=== PATIENT | female | born 1980 | race Caucasian/White ===

== ENCOUNTER 2018-10-11 02:14 | Inpatient (IN) | payer MEDICAID ==
[2018-10-11] MEDS ORDERED: OXYTOCIN 30 UNITS/LR 500 ML IV ×2 (03:00→06:00)
[2018-10-11] MEDS ORDERED: BUTORPHANOL 2 MG INJ IV (03:00)
[2018-10-11] MEDS ORDERED: CARBOPROST 250 MCG INJ IM ×2 (03:00→06:00)
[2018-10-11] MEDS ORDERED: MISOPROSTOL 200 MCG TAB PR ×2 (03:00→06:00)
[2018-10-11] MEDS ORDERED: METHYLERGONOVINE 0.2 MG INJ IM ×2 (03:00→06:00)
[2018-10-11] MEDS: LACTATED RINGER'S 1,000 ML IV ×3 (03:01→21:08)
[2018-10-11 03:21] LABS: ADD MAN DIFF? NO
[2018-10-11 03:33] LABS: BASOPHIL # 0.1 10^3/ul (0.0-0.1); BASOPHILS % 0.6 % (0.0-2.0); EOSINOPHILS # 0.1 10^3/ul (0.0-0.5); EOSINOPHILS % 1.2 % (0.0-7.0); HEMATOCRIT 41.4 % (37.0-47.0); HEMOGLOBIN 13.7 g/dl (12.0-16.0); LYMPHOCYTES # 1.8 10^3/ul (0.8-2.9); LYMPHOCYTES % 18.3 % (15.0-51.0); MEAN CORPUSCULAR HEMOGLOBIN 27.8 pg (29.0-33.0); MEAN CORPUSCULAR HGB CONC 33.1 g/dl (32.0-37.0); MEAN PLATELET VOLUME 11.2 fl (7.4-10.4); MONOCYTE # 0.8 10^3/ul (0.3-0.9); MONOCYTES % 8.4 % (0.0-11.0); NEUTROPHIL # 6.8 10^3/ul (1.6-7.5); NEUTROPHILS % 70.9 % (39.0-77.0); PLATELET COUNT 219 10^3/UL (140-415); RED BLOOD COUNT 4.93 10^6/ul (4.20-5.40); RED CELL DISTRIBUTION WIDTH 13.5 % (11.5-14.5)
[2018-10-11 03:33] LABS: WHITE BLOOD COUNT 9.7 10^3/ul (4.8-10.8)
[2018-10-11 03:45] LABS: INR 0.88; PT RATIO 0.9
[2018-10-11 03:46] LABS: PARTIAL THROMBOPLASTIN TIME 26.2 Sec (23.0-35.0)
[2018-10-11 04:26] LABS: HEPATITIS B SURFACE ANTIGEN NEGATIVE (NEGATIVE)
[2018-10-11] MEDS: OXYTOCIN 30 UNITS/LR 500 ML IV ×3 (05:43→05:47)
[2018-10-11] MEDS: LIDOCAINE 1% (MPF) 30 ML INJ INJ (05:44)
[2018-10-11] MEDS ORDERED: MAGNESIUM HYDROXIDE 30ML CUP PO (06:00)
[2018-10-11] MEDS ORDERED: ACETAMINOPHEN 325 MG TAB PO ×2 (06:00)
[2018-10-11] MEDS ORDERED: ONDANSETRON 4 MG INJ IV (06:00)
[2018-10-11 15:33] LABS: RAPID PLASMA REAGIN NONREACTIVE (NR)
[2018-10-11] MEDS: DIBUCAINE 1% 30 GM OINT TOP (19:20)
[2018-10-11] MEDS: WITCH HAZEL/GLYCERIN PAD PR (19:20)
[2018-10-11] MEDS: BENZOCAINE 20% 56 ML SPRAY TOP (19:21)
[2018-10-11] MEDS: LANOLIN HPA 1 PKT TOP (19:21)
[2018-10-11] MEDS: SENNA/DOCUSATE NA (8.6MG/50MG) TAB PO (21:00)
[2018-10-11] MEDS: LACTATED RINGER'S 1,000 ML IV* ×3 (21:08→21:47)
[2018-10-11] MEDS: IBUPROFEN 600 MG TAB PO (23:44)
[2018-10-12] MEDS: LACTATED RINGER'S 1,000 ML IV ×3 (02:49→18:49)
[2018-10-12] MEDS: LACTATED RINGER'S 1,000 ML IV* ×3 (05:47→21:47)
[2018-10-12] MEDS: IBUPROFEN 600 MG TAB PO (06:29)
[2018-10-12 08:51] LABS: ADD MAN DIFF? NO
[2018-10-12 08:56] LABS: WHITE BLOOD COUNT 10.4 10^3/ul (4.8-10.8)
[2018-10-12 08:56] LABS: BASOPHILS % 0.4 % (0.0-2.0); EOSINOPHILS # 0.2 10^3/ul (0.0-0.5); EOSINOPHILS % 1.8 % (0.0-7.0); HEMATOCRIT 34.1 % (37.0-47.0); HEMOGLOBIN 11.4 g/dl (12.0-16.0); LYMPHOCYTES % 19.2 % (15.0-51.0); MEAN CORPUSCULAR HEMOGLOBIN 28.2 pg (29.0-33.0); MEAN CORPUSCULAR HGB CONC 33.4 g/dl (32.0-37.0); MEAN CORPUSCULAR VOLUME 84.4 fl (82.0-101.0); MONOCYTE # 0.9 10^3/ul (0.3-0.9); MONOCYTES % 8.4 % (0.0-11.0); NEUTROPHIL # 7.2 10^3/ul (1.6-7.5); NEUTROPHILS % 69.1 % (39.0-77.0); PLATELET COUNT 182 10^3/UL (140-415); RED BLOOD COUNT 4.04 10^6/ul (4.20-5.40); RED CELL DISTRIBUTION WIDTH 14.1 % (11.5-14.5)
[2018-10-13] MEDS: SENNA/DOCUSATE NA (8.6MG/50MG) TAB PO (09:23)
[2018-10-13] MEDS: IBUPROFEN 600 MG TAB PO (11:54)
== END 2018-10-13 13:40 | disposition home or self-care (01) | DRG 807 ==
LOC: OBT 02:14 → L-D 02:16 → OBT 02:45 → L-D 02:45 → PP1 08:59
PROVIDERS: Obstetrics & Gynecology
PROC: 10E0XZZ Delivery of Products of Conception, External Approach (ICD-10-PCS; principal; 2018-10-11)
PROC: 0HQ9XZZ Repair Perineum Skin, External Approach (ICD-10-PCS; 2018-10-11)
DX: O70.0 First degree perineal laceration during delivery (principal); Z37.0 Single live birth; Z3A.39 39 weeks gestation of pregnancy
CPT/HCPCS: 76815; 85025; 85610; 85730; 86592; 86850; 86900; 86901; 87340